=== PATIENT | female | born 1965 | race Native Hawaiian/Other Pacific Islander ===

== ENCOUNTER 2016-03-17 06:44 | Outpatient (CLI) | payer BC ==
[~2016-03-17 06:44] MED LIST: ALBUTEROL0.083 % IN; ALVESCO160 MCG IN; ASA LOW DOSE81 MG OR; BUDE1AER5 INH; CITALOPRAM40 MG PO; D31000 UNIT OR; DOXYCYCL HYC100 M4 PO; EQL ASPIRIN325 MG PO; FERROUS SULF325 M1 PO; HUMALOG100 MG/ML SC; IBUP800T30 PO; LEVO0.1224 PO; LIPITOR40 MG PO; LISI20TA24 PO; LORA0.5T17 PO; LYRICA150 MG PO; OMEPRAZOLE20 M1 PO; ONDA4TAB3 PO; PHENELX32; PLAVIX75 MG PO; RANI150T78 PO; ROPI5T PO; SUCR1SUS PO; SYNTHROID175 MCG PO; TIZA4TAB5 PO; TOPAMAX100 MG OR; ZOLP10TA2 PO; [UNRECOGNIZED DRUG - CODE] PO
== END 2016-03-17 06:46 | disposition short-term general hospital (02) ==
LOC: AMB 06:44
DX: R51 Headache (principal); M54.5 Low back pain; E16.1 Other hypoglycemia; R55 Syncope and collapse; W01.0XXA Fall on same level from slipping, tripping and stumbling without subsequent striking against object, initial encounter; Y93.A1 Activity, exercise machines primarily for cardiorespiratory conditioning; Y92.39 Other specified sports and athletic area as the place of occurrence of the external cause
CPT/HCPCS: A0425; A0427

== ENCOUNTER 2016-03-17 06:55 | Emergency (ER) | payer BC ==
[~2016-03-17] VITALS: Ht 162.6 cm; Wt 99.8 kg
[2016-03-17 06:55] VITALS: TEMP 98.6
[2016-03-17 08:47] VITALS: BP 140/82
== END 2016-03-17 09:00 | disposition home or self-care (01) ==
LOC: ED 06:55
DX: M54.5 Low back pain (principal); S30.0XXA Contusion of lower back and pelvis, initial encounter; S20.222A Contusion of left back wall of thorax, initial encounter; S20.221A Contusion of right back wall of thorax, initial encounter; R55 Syncope and collapse; W17.89XA Other fall from one level to another, initial encounter; Y93.A1 Activity, exercise machines primarily for cardiorespiratory conditioning; Y92.098 Other place in other non-institutional residence as the place of occurrence of the external cause
CPT/HCPCS: 82962; 99284

== ENCOUNTER 2016-12-20 14:26 | Outpatient (CLI) | payer BC | END 2016-12-20 15:30 | disposition home or self-care (01) | LOC: RAD | DX: G56.01 Carpal tunnel syndrome, right upper limb (principal); G56.02 Carpal tunnel syndrome, left upper limb; M32.8 Other forms of systemic lupus erythematosus; M79.7 Fibromyalgia ==

== ENCOUNTER 2017-03-27 10:38 | Observation (INO) | payer BC, OTHER ==
[~2017-03-27] VITALS: Ht 165.1 cm; Wt 115.3 kg
[2017-03-27 12:03] LABS: PLATELET COUNT 263 K/uL (152-353)
[2017-03-27 12:19] LABS: POTASSIUM 3.2 mmol/L (3.6-5.2)
[2017-03-27 16:12] VITALS: BP 147/59; TEMP 97.9; Ht 165.1 cm; Wt 115.3 kg
[2017-03-27] MEDS ORDERED: PROAIR HFA IN (18:04)
[2017-03-27] MEDS ORDERED: HUMALOG JU100 UNIT/M SC (18:06)
[2017-03-27] MEDS ORDERED: SPIRONOLACT50 MG PO (18:07)
[2017-03-27] MEDS ORDERED: HYDR200T3 PO (18:08)
[2017-03-27] MEDS ORDERED: FURO40TA93 PO (18:09)
[2017-03-27] MEDS ORDERED: POT CHLORIDE10 ME1 OR (18:11)
[2017-03-27] MEDS ORDERED: ROPINIROLE0.5 MG PO (18:12)
[2017-03-27] MEDS ORDERED: LYRICA100 MG OR (18:13)
[2017-03-27] MEDS ORDERED: NYST100010 EX (18:14)
[2017-03-27 20:00] VITALS: BP 121/60; TEMP 98.4
[2017-03-28] VITALS: BP 125/71; TEMP 97.6
[2017-03-28 04:00] VITALS: BP 139/85; TEMP 97.4
[2017-03-28 08:00] VITALS: BP 130/59; TEMP 98.8
[2017-03-28] MEDS ORDERED: LORA10TA3 PO (09:19)
[2017-03-28 10:23] LABS: PLATELET COUNT 222 K/uL (152-353)
--- NOTE | 2017-03-29 14:16 | NUR ---
03/29/17-THE INPATIENT CASE WAS CANCELLED PER [place]. PT WAS OBSERVATION AND THEREFORE THE INPT CASE CANCELLED.
== END 2017-03-28 12:05 | disposition home or self-care (01) ==
LOC: MED/SURG 10:38
PROVIDERS: Family Medicine; ADMIT Nurse Practitioner
DX: J20.9 Acute bronchitis, unspecified (principal); R06.09 Other forms of dyspnea; M79.7 Fibromyalgia; M32.9 Systemic lupus erythematosus, unspecified; M15.8 Other polyosteoarthritis; E78.4 Other hyperlipidemia; I10 Essential (primary) hypertension; E10.42 Type 1 diabetes mellitus with diabetic polyneuropathy
CPT/HCPCS: 80053; 85027; 87040; 93005; 94640; 94664; 94760; 99220; G0378; G0379

== ENCOUNTER 2017-04-28 08:36 | Outpatient (CLI) | payer BC, OTHER ==
[~2017-04-28 08:36] MED LIST changes: +FURO40TA93 PO; +HUMALOG JU100 UNIT/M SC; +HYDR200T3 PO; +LORA10TA3 PO; +LYRICA100 MG OR; +NYST100010 EX; +POT CHLORIDE10 ME1 OR; +PROAIR HFA IN; +ROPINIROLE0.5 MG PO; +SPIRONOLACT50 MG PO
== END 2017-04-28 22:59 | disposition home or self-care (01) ==
LOC: US 08:36
DX: M79.605 Pain in left leg (principal)

== ENCOUNTER → 2017-07-25 | Outpatient (CLI) | payer BC, OTHER | END | disposition short-term general hospital (02) | LOC: AMB 19:41 | DX: R55 Syncope and collapse (principal) | CPT/HCPCS: A0425; A0427 ==

== ENCOUNTER 2018-01-12 10:31 | Outpatient (CLI) | payer BC, OTHER | END 2018-01-12 23:12 | disposition home or self-care (01) | LOC: MRI 10:31 | DX: R55 Syncope and collapse (principal) | CPT/HCPCS: 36415; 82565; 84520; A9576 ==

== ENCOUNTER 2018-04-04 22:12 | Outpatient (CLI) | payer BC, OTHER | END 2018-04-04 22:43 | disposition short-term general hospital (02) | LOC: AMB 22:12 | DX: R55 Syncope and collapse (principal) | CPT/HCPCS: A0425; A0427 ==

== ENCOUNTER 2019-02-23 14:16 | Outpatient (CLI) | payer BC, OTHER ==
[~2019-02-23 14:16] MED LIST changes: +ACEBUTOLOL200 MG PO; +ADMELOG100 UNIT/M IM; +ASPIR-LOW81 MG PO; +B-12 COMPL1000 MCG/M INJ; +CALCIUM 600+D31 TAB PO; +CETIRIZINE10 MG PO; +CITALOPRAM40 M1 PO; +DICLOFENAC SODIUM1 % TD; +EUCRISA 2% EX; +HYDROXYZINE HYD10 MG PO; +HYDROXYZINE HYD25 MG PO; +LEFLUNOMIDE10 MG PO; +MONTELUKAST SOD10 MG PO; +SPIRIVA INH; +TIZANIDINE HYDRO4 MG PO; +TOPAMAX100 MG PO; +TOPAMAX50 MG PO; +VITAMIN D22000 UNIT PO; +VITAMIN D400 UNI1 PO
[2019-02-24] MEDS ORDERED: LANTUS SOL100 UNIT/M SC (01:18)
[2019-02-24] MEDS ORDERED: SPIRIVA RE2.5 MCG/AC INH (01:20)
[2019-02-24] MEDS ORDERED: BUDE1AER5 INH (01:22)
[2019-02-24] MEDS ORDERED: EUCRISA 2% EX (01:34)
== END 2019-02-23 14:20 | disposition short-term general hospital (02) ==
LOC: AMB 14:16
DX: R46.4 Slowness and poor responsiveness (principal); R73.9 Hyperglycemia, unspecified
CPT/HCPCS: A0425; A0427

== ENCOUNTER 2019-02-23 14:23 | Observation (INO) | payer BC, OTHER ==
[~2019-02-23] VITALS: Ht 165.1 cm; Wt 98.1 kg
[2019-02-23] VITALS (7 sets, daily range): BP systolic 99–145; BP diastolic 41–83; TEMP 97.1–97.7; Ht 165.1 cm; Wt 98.1 kg
[2019-02-23 15:06] LABS: PLATELET COUNT 263 K/uL (152-353)
[2019-02-23 16:04] LABS: POTASSIUM 3.7 mmol/L (3.6-5.2); SODIUM 130 mmol/L (136-145)
[2019-02-24] MEDS ORDERED: LANTUS SOL100 UNIT/M SC (01:18)
[2019-02-24] MEDS ORDERED: SPIRIVA RE2.5 MCG/AC INH (01:20)
[2019-02-24] MEDS ORDERED: BUDE1AER5 INH (01:22)
[2019-02-24] MEDS ORDERED: EUCRISA 2% EX (01:34)
[2019-02-24 04:00] VITALS: BP 83/39; TEMP 97.8
[2019-02-24 04:26] LABS: POTASSIUM 3.4 mmol/L (3.6-5.2)
[2019-02-24 20:23] VITALS: BP 106/46; TEMP 98.4
[2019-02-25] VITALS: BP 96/40; TEMP 98.1
[2019-02-25 04:00] VITALS: BP 106/46; TEMP 97.7
[2019-02-25 08:15] VITALS: BP 101/53; TEMP 97.5
== END 2019-02-25 11:25 | disposition home or self-care (01) ==
LOC: ED 14:23 → MED/SURG 17:30
PROVIDERS: Internal Medicine; ADMIT Emergency Medicine
DX: E10.65 Type 1 diabetes mellitus with hyperglycemia (principal); Z79.4 Long term (current) use of insulin; E03.8 Other specified hypothyroidism; M32.8 Other forms of systemic lupus erythematosus; I11.0 Hypertensive heart disease with heart failure; I50.9 Heart failure, unspecified; G25.81 Restless legs syndrome; M79.7 Fibromyalgia; I25.10 Atherosclerotic heart disease of native coronary artery without angina pectoris; K21.9 Gastro-esophageal reflux disease without esophagitis; G40.802 Other epilepsy, not intractable, without status epilepticus; F41.8 Other specified anxiety disorders; E10.42 Type 1 diabetes mellitus with diabetic polyneuropathy; Z79.899 Other long term (current) drug therapy; Z51.81 Encounter for therapeutic drug level monitoring
CPT/HCPCS: 80048; 80053; 81000; 81002; 82550; 82553; 82947; 82948; 82962; 83605; 84443; 84484; 85027; 87086; 87088; 93005; 96360; 96361; 96365; 96366; 96372; 96375; 99220; 99284; G0378; J1815; J2310

== ENCOUNTER 2019-07-11 15:14 | Outpatient (CLI) | payer OTHER ==
[~2019-07-11 15:14] MED LIST changes: +LANTUS SOL100 UNIT/M SC; +SPIRIVA RE2.5 MCG/AC INH
== END 2019-07-11 22:26 | disposition home or self-care (01) ==
LOC: RAD 15:14
DX: M06.4 Inflammatory polyarthropathy (principal); M79.641 Pain in right hand; M79.642 Pain in left hand

== ENCOUNTER 2019-07-28 00:36 | Emergency (ER) | payer OTHER ==
[~2019-07-28] VITALS: Ht 165.1 cm; Wt 10.4 kg
[2019-07-28 01:14] LABS: PLATELET COUNT 299 K/uL (152-353)
[2019-07-28 01:24] LABS: POTASSIUM 3.8 mmol/L (3.6-5.2); SODIUM 137 mmol/L (136-145)
[2019-07-28 02:50] VITALS: BP 115/67; TEMP 98.4
== END 2019-07-28 02:50 | disposition home or self-care (01) ==
LOC: ED 00:41
PROVIDERS: Emergency Medicine Emergency Medical Services
DX: F41.1 Generalized anxiety disorder (principal); N39.0 Urinary tract infection, site not specified
CPT/HCPCS: 80053; 81000; 83690; 84484; 85027; 87086; 87088; 93005; 96360; 96365; 96375; 99284; J0696; J1815; J2060

== ENCOUNTER 2019-08-24 19:47 | Emergency (ER) | payer OTHER ==
[~2019-08-24] VITALS: Ht 165.1 cm; Wt 104.3 kg
[2019-08-24 20:24] LABS: PLATELET COUNT 259 K/uL (152-353)
[2019-08-24 20:27] LABS: POTASSIUM 4.1 mmol/L (3.6-5.2); SODIUM 139 mmol/L (136-145)
[2019-08-24 22:15] VITALS: BP 107/51; TEMP 98.4
== END 2019-08-24 22:38 | disposition home or self-care (01) ==
LOC: ED 19:47
PROVIDERS: General Practice
DX: N39.0 Urinary tract infection, site not specified (principal); E86.0 Dehydration
CPT/HCPCS: 80053; 80307; 80320; 80329; 81000; 81002; 83605; 83735; 84484; 85027; 87088; 93005; 96360; 96361; 96365; 99284; J0696

== ENCOUNTER 2019-10-17 13:26 | Outpatient (CLI) | payer OTHER ==
[2019-10-17 15:58] LABS: PLATELET COUNT 327 K/uL (152-353)
[2019-10-17 16:03] LABS: POTASSIUM 3.6 mmol/L (3.6-5.2)
== END 2019-10-17 23:11 | disposition home or self-care (01) ==
LOC: LABW 13:26
PROVIDERS: Nurse Practitioner Gerontology
DX: M06.4 Inflammatory polyarthropathy (principal); M32.8 Other forms of systemic lupus erythematosus; Z79.899 Other long term (current) drug therapy
CPT/HCPCS: 36415; 80053; 85027

== ENCOUNTER 2019-10-31 14:19 | Outpatient (CLI) | payer OTHER ==
[2019-10-31 14:41] LABS: PLATELET COUNT 295 K/uL (152-353)
[2019-10-31 14:53] LABS: POTASSIUM 3.8 mmol/L (3.6-5.2)
== END 2019-10-31 23:44 | disposition home or self-care (01) ==
LOC: LABW 14:19
PROVIDERS: Nurse Practitioner Gerontology
DX: M06.4 Inflammatory polyarthropathy (principal); M32.8 Other forms of systemic lupus erythematosus; Z79.899 Other long term (current) drug therapy
CPT/HCPCS: 36415; 80053; 85027

== ENCOUNTER 2019-11-12 10:41 | Outpatient (CLI) | payer OTHER ==
[2019-11-12 11:13] LABS: PLATELET COUNT 261 K/uL (152-353)
[2019-11-12 11:38] LABS: POTASSIUM 3.5 mmol/L (3.6-5.2)
== END 2019-11-13 00:40 | disposition home or self-care (01) ==
LOC: LABW 10:41
PROVIDERS: Nurse Practitioner Gerontology
DX: M06.4 Inflammatory polyarthropathy (principal); M32.8 Other forms of systemic lupus erythematosus; Z79.899 Other long term (current) drug therapy
CPT/HCPCS: 36415; 80053; 85027

== ENCOUNTER 2020-05-22 10:56 | Outpatient (CLI) | payer OTHER | END 2020-05-22 21:20 | disposition home or self-care (01) | LOC: RAD 10:56 | PROVIDERS: ATTEND Internal Medicine Rheumatology | DX: R53.83 Other fatigue (principal); Z79.899 Other long term (current) drug therapy ==

== ENCOUNTER 2020-06-17 14:37 | Outpatient (CLI) | payer OTHER ==
[2020-06-17 15:14] LABS: POTASSIUM 3.4 mmol/L (3.6-5.2)
== END 2020-06-17 21:38 | disposition home or self-care (01) ==
LOC: LABW 14:37
PROVIDERS: ATTEND Nurse Practitioner Adult Health
DX: R35.8 Other polyuria (principal); Z79.899 Other long term (current) drug therapy
CPT/HCPCS: 36415; 80048

== ENCOUNTER 2020-07-02 13:40 | Outpatient (CLI) | payer OTHER ==
[2020-07-02 14:04] LABS: POTASSIUM 3.8 mmol/L (3.6-5.2)
== END 2020-07-02 22:00 | disposition home or self-care (01) ==
LOC: LABW 13:40
PROVIDERS: ATTEND Nurse Practitioner Adult Health
DX: R35.8 Other polyuria (principal); Z79.899 Other long term (current) drug therapy
CPT/HCPCS: 36415; 80048

== ENCOUNTER 2020-07-30 15:11 | Outpatient (CLI) | payer OTHER ==
[2020-08-10 06:06] LABS: POTASSIUM 4.1 mmol/L (3.6-5.2)
== END 2020-07-30 17:00 | disposition home or self-care (01) ==
LOC: LABW 15:11
PROVIDERS: ATTEND Nurse Practitioner Adult Health
DX: R35.8 Other polyuria (principal); Z79.899 Other long term (current) drug therapy
CPT/HCPCS: 36415; 80048

== ENCOUNTER 2020-10-23 19:49 | Emergency (ER) | payer OTHER ==
[~2020-10-23] VITALS: Ht 165.1 cm; Wt 110.2 kg
[2020-10-23 19:54] VITALS: BP 148/77; TEMP 98.7
== END 2020-10-23 21:21 | disposition home or self-care (01) ==
LOC: ED 19:49
DX: G43.909 Migraine, unspecified, not intractable, without status migrainosus (principal)
CPT/HCPCS: 96372; 99283; J1200; J1885; J2405

== ENCOUNTER 2020-11-17 10:58 | Outpatient (CLI) | payer OTHER ==
[2020-11-17 11:19] LABS: PLATELET COUNT 338 K/uL (152-353)
== END 2020-11-17 19:37 | disposition home or self-care (01) ==
LOC: LABW 10:58
PROVIDERS: ATTEND Internal Medicine
DX: E11.9 Type 2 diabetes mellitus without complications (principal); Z79.4 Long term (current) use of insulin; Z96.41 Presence of insulin pump (external) (internal); E03.4 Atrophy of thyroid (acquired); I10 Essential (primary) hypertension; E78.2 Mixed hyperlipidemia; E66.9 Obesity, unspecified; Z78.0 Asymptomatic menopausal state; Z79.899 Other long term (current) drug therapy
CPT/HCPCS: 36415; 80053; 80061; 82043; 82248; 82570; 84439; 84443; 85027

== ENCOUNTER 2021-02-11 14:42 | Emergency (ER) | payer OTHER ==
[~2021-02-11] VITALS: Ht 165.1 cm; Wt 121.1 kg
[2021-02-11 15:13] LABS: PLATELET COUNT 315 K/uL (152-353)
[2021-02-11 15:19] LABS: POTASSIUM 3.9 mmol/L (3.6-5.2)
[2021-02-11 15:41] LABS: PARTIAL THROMBOPLASTIN TIME 21.8 SECONDS (24.5-33.6)
[2021-02-11 16:00] VITALS: BP 161/79; TEMP 98
== END 2021-02-11 16:00 | disposition home or self-care (01) ==
LOC: ED 14:42
PROVIDERS: Hospitalist
DX: I50.9 Heart failure, unspecified (principal)
CPT/HCPCS: 80053; 82550; 83880; 84484; 85027; 85610; 85730; 93005; 96372; 99283; J1815

== ENCOUNTER 2021-12-15 09:23 | Outpatient (CLI) | payer OTHER | END 2021-12-15 19:10 | disposition home or self-care (01) | LOC: RAD 09:23 | PROVIDERS: ATTEND Nurse Practitioner Gerontology | DX: M06.09 Rheumatoid arthritis without rheumatoid factor, multiple sites (principal) ==

== ENCOUNTER 2022-01-03 09:54 | Outpatient (CLI) | payer OTHER | END 2022-01-03 19:36 | disposition home or self-care (01) | LOC: MAMMO 09:54 | PROVIDERS: ATTEND Nurse Practitioner | DX: Z12.31 Encounter for screening mammogram for malignant neoplasm of breast (principal) ==

== ENCOUNTER 2022-05-12 09:56 | Outpatient (CLI) | payer OTHER | END 2022-05-12 16:00 | disposition home or self-care (01) | LOC: RAD 09:56 | PROVIDERS: ATTEND Internal Medicine Rheumatology | DX: M06.09 Rheumatoid arthritis without rheumatoid factor, multiple sites (principal) ==